=== PATIENT | female | born 1940 | race Caucasian/White ===

== ENCOUNTER 2021-06-21 13:33 | Inpatient (IN) | payer MEDICARE, SELFPAY ==
[2021-06-21] VITALS (25 sets, daily range): BP systolic 95–193; BP diastolic 53–134; PULSE 63–113; RESP 16–18; TEMP 36.5–36.9; O2SAT 90–99; BMI 29.6; BMI 30.2
--- NOTE | 2021-06-21 | IR_ITS ---
APPROVED REPORT Patient Location: Emergent Digital Account Executive: JERONIMO Ibrahim RT (R) PROCEDURES Selective coronary angiogram Drug-eluting stent deployment to the mid dominant right coronary Drug-eluting stent deployment to the acutely occluded mid left anterior descending artery INDICATION Acute non-ST elevation myocardial infarction, Coronary disease Informed consent was obtained prior to the procedure. COMPLICATIONS None Estimated Blood Loss: Less than 10 mls TECHNIQUE One percent lidocaine used to anesthetize the right anterior aspect of the wrist. The right radial artery was accessed via the Seldinger technique. A 6 Prydeinig sheath was placed in the right radial artery. 2.5 mg of verapamil, 800 mcg of nitroglycerin, 1mg Lidocaine and 5000 U Heparin were given through the arterial sheath. The tag catheter was also used to perform selective coronary angiogram. At the end of the diagnostic angiogram therapeutic heparin was administered giving a therapeutic ACT. The guide catheter was placed in the right coronary artery where a Choice PT extra-support wire was placed distally. A 3 mm x 26 mm resolute Center stent was deployed at 24 rafy reducing the critical stenosis to 0%. SAGAR-3 flow was present before and after the procedure. At the end of the procedure the apparatus was removed and the same guide catheter was placed in the left anterior descending artery where a Choice PT extra-support wire was used to push through the fresh occlusion of the mid LAD. 2 mm balloon was used to predilate the stenosis and a 2.75 x 18 mm resolute Case stent was deployed at 20 rafy reducing the 100% occlusion to 0%. SAGAR 0 flow was present from the mid LAD down and SAGAR-3 flow was present after the procedure. At the end of the procedure the apparatus was removed the sheath was removed and hemostasis was achieved using TR banding patient was transferred to the postop holding area in stable condition ANGIOGRAPHIC RESULTS The left main artery Normal The left anterior descending artery Has proximal 10 to 20% stenosis and then occluded in mid segment after the first and second septal planer setter. Following revascularization the entire LAD was widely patent with inline flow into the apex. 3 medium sized diagonal arteries are present first diagonal artery has an ostial 40 to 50% stenosis while the second diagonal artery has an ostial 70% stenosis and a third smaller diagonal artery has ostial 40% stenosis The circumflex artery Gives rise to a moderate sized ramus intermedius which is patent and has an ostial 60% stenosis while the large nondominant circumflex artery has mid vessel 40 to 50% stenosis along a tortuous bend The right coronary artery Is a large dominant vessel and has proximal to mid vessel eccentric 90% stenosis followed by distal diffuse 30% stenosis The FONG ventriculogram reveals Not performed The left ventricular end-diastolic pressure Not measured IMPRESSION Critical two-vessel coronary artery disease as described above Successful stenting of an acutely thrombosed mid LAD 100% occlusion reduced to 0% with 1 drug-eluting stent Successful stenting of a severe to critically diseased proximal to mid dominant right coronary artery 90% stenosis reduced to 0% with 1 drug-eluting stent PLAN 1. Dual antiplatelet therapy 2. Echocardiogram in the morning to determine if patient is a candidate for LifeVest 3. OLAF inhibitor's and beta-blockers 4. LDL less than 55 5. Avoidance of tobacco products 6. Risk factor modification 7. Cardiac rehabilitation Electronically signed by : Julio Lewis MD 06/21/2021 17:50:13
--- NOTE | 2021-06-21 13:29 | ECG_ITS ---
APPROVED REPORT Exam: Resting ECG HR:105 bpm ECG Measurements Heart Rate 105 AXES TX 154 P 81 QRSd 150 QRS 32 QT 341 T 137 QTc 402 Conclusion SINUS TACHYCARDIA LEFT BUNDLE BRANCH BLOCK [120+ ms QRS DURATION, 80+ ms Q/S IN V1/V2, 85+ ms R IN I/aVL/V5/V6] ABNORMAL ECG UNCONFIRMED REPORT Electronically signed by : Farhad Mercado MD 06/21/2021 18:40:35
--- NOTE | 2021-06-21 13:48 | HMH.EDGENADL ---
ED Disposition Clinical Impression: Non-STEMI (non-ST elevated myocardial infarction) Disposition: Admitted As Inpatient Condition on Discharge: Fair Referrals: Provider,Referral, [Primary Care Provider] - - Critical Care Critical Care Time: No Attestation: On , the high probability of a clinically significant, sudden or life threatening deterioration of the following system(s) required my full and direct attention, intervention and personal management. The time I documented below is in addition to time spent performing reported procedures but includes the following listed in this critical care notation. Medical Decision Making - [place] Inquiry Pt receiving controlled substance: No Vital Signs: 06/21/21 13:37 06/21/21 14:30 06/21/21 15:01 Temperature 98.5 F Temperature Source Oral Pulse Rate 108 H 113 H Pulse Rate [Left Radial] 87 Respiratory Rate 16 Blood Pressure 162/76 H 163/72 H Blood Pressure [Right Arm] 154/96 H Blood Pressure Mean [Right Arm] 115 02 Sat by Pulse Oximetry 98 95 96 Oxygen Delivery Method Room Air - Lab Data Lab Results 06/21/21 13:32: WBC 16.7 H, RBC 5.55 H, Hgb 16.0, Hct 49.3 H, MCV 88.8, MCH 28.8, MCHC 32.4, RDW 13.8, Plt Count 412, MPV 9.0, Neut % (Auto) 85.5 H, Lymph % (Auto) 7.4 L, [place] % (Auto) 5.6, Eos % (Auto) 1.0, Baso % (Auto) 0.6, Neut # (Auto) 14.3 H, Lymph # (Auto) 1.2, [place] # (Auto) 0.9, Eos # (Auto) 0.2, Baso # (Auto) 0.1, Total Counted 100, Neutrophils % (Manual) 84 H, Lymphocytes % (Manual) 11, Monocytes % (Manual) 5, Platelet Estimate Normal, RBC Morphology Normal 06/21/21 13:32: Sodium 130 L, Potassium 3.8, Chloride 98, Carbon Dioxide 26, Anion Gap 9.8, BUN 7, Creatinine 0.60, Estimated Creat Clear 53, Estimated GFR 96, Est GFR ( Amer) 117, Glucose 115 H, Calcium 9.4, Troponin I 5.94 H Result diagrams: 06/21/21 13:32 06/21/21 13:32 Orders (Tests/Meds): ED MEDICATIONS Generic Name Dose Route Start Last Admin Trade Name Freq PRN Reason Stop Dose Admin Fentanyl Citrate 25 mcg 06/21/21 15:12 Fentanyl 100mcg/2ml Vial IV 06/22/21 15:12 Q3MINP PRN Moderate to Severe Pain Flumazenil 0.2 mg 06/21/21 15:12 Flumazenil 0.1mg/Ml 5ml Vial IV 06/21/21 23:00 NEEDED PRN Sedation Midazolam HCl 1 mg 06/21/21 15:12 Midazolam 2mg/2ml Vial IV 06/22/21 15:12 Q3MINP PRN Sedation Midazolam HCl 1 mg 06/21/21 15:12 Midazolam Hcl 1mg/1ml 5ml Vial IV 06/22/21 15:12 Q3MINP PRN Sedation Naloxone HCl 0.4 mg 06/21/21 15:12 Naloxone 0.4mg/Ml Vial IV 06/22/21 15:12 Q5MINP PRN Decreased Respirations Sodium Chloride 8 ml 06/21/21 15:00 Sodium Chloride 0.9% 10ml Vial IV 07/21/21 14:59 NEEDED PRN dilute pepcid Discontinued Medications Generic Name Dose Route Start Last Admin Trade Name Freq PRN Reason Stop Dose Admin Aspirin 324 mg 06/21/21 14:23 Aspirin 81mg Chewable Tablet PO 06/21/21 14:24 ONCE ONE Belladonna Alkaloids 60 ml 06/21/21 13:48 Gi Cocktail 60ml Udc PO 06/21/21 13:49 ONCE ONE Diphenhydramine HCl 50 mg 06/21/21 15:00 Diphenhydramine 50mg/Ml Vial IV 06/21/21 15:01 ONCE ONE Famotidine 20 mg 06/21/21 15:00 Famotidine 20mg/2ml Vial IV 06/21/21 15:01 ONCE ONE Methylprednisolone Sodium Succinate 250 mg 06/21/21 15:00 Methylprednisolone Sod Succ 125mg Vial IV 06/21/21 15:01 ONCE ONE ORDERS Category Date Time Status Cardiology Consult [Consult to Cardiology] [CONS] Cons 06/21/21 15:05 Active Routine Chest XR 2 view (NOT portable) [XR chest 2V] Stat Exams 06/21/21 13:49 Taken BNP [Brain Natriuretic Peptide] Stat Lab 06/21/21 13:32 Received Troponin I Q3H Lab 06/21/21 17:00 Ordered Troponin I Q3H Lab 06/21/21 20:00 Ordered - ECG Data Tracing #1 EKG interpreted by Molina Padilla MD: Rhythm: sinus tachycardia Rate: 105 [place]: normal Ectopy: none Cond
--- NOTE | 2021-06-21 13:49 | XR_ITS ---
FINAL REPORT CLINICAL HISTORY: burning in chest, sob FINDINGS: Two views of the chest were obtained. The heart size and pulmonary vascularity are within normal limits. The mediastinum is normal. The lungs are hyperinflated consistent with COPD. There are bilateral pulmonary opacities. There is no pneumothorax. Postoperative changes are seen in the right shoulder. IMPRESSION: Bilateral pulmonary opacities, pneumonia or edema. Reviewed, Interpreted and Dictated by Kwame Lebron III, MD Transcribed by Jagdish Clark Authenticated by Kwame Lebron III, MD on 06/21/2021 04:27:27 PM [facility]
[2021-06-21 13:57] LABS: Chloride 98 mmol/L (98-107)
[2021-06-21 13:58] LABS: Potassium 3.8 mmoL/L (3.5-5.1); Sodium 130 mmol/L (136-145)
[2021-06-21 13:59] LABS: Basophils # 0.1 K/mm3 (0-0.2); Basophils % 0.6 % (0.1-2.0); Eosinophils # 0.2 K/mm3 (0.0-0.4); Hematocrit 49.3 % (37.0-47.0); Lymphocytes # 1.2 K/mm3 (0.7-4.5); Lymphocytes % 7.4 % (10-50); Mean Corpuscular HGB Conc 32.4 g/dL (31.8-35.4); Mean Corpuscular Hemoglobin 28.8 pg (27.0-31.2); Mean Corpuscular Volume 88.8 fl (81-99); Monocytes # 0.9 K/mm3 (0.1-1.0); Monocytes % 5.6 % (1.7-9.3); Neutrophils # 14.3 K/mm3 (1.8-7.8); Neutrophils % 85.5 % (37.0-80.0); Platelet Count 412 K/mm3 (142-424); Red Blood Count 5.55 M/mm3 (4.20-5.40); Red Cell Distribution Width 13.8 % (11.5-17.5); White Blood Count 16.7 K/mm3 (4.8-10.8)
[2021-06-21 14:00] LABS: Blood Urea Nitrogen 7 mg/dl (7-17); Creatinine Clearance Estimated 53 mL/min (50-200); Estimated Glomerular Filt Rate 96 ml/min (>60); GFR (African American) 117 ML/MIN (>60)
[2021-06-21 14:01] LABS: Anion Gap 9.8 mEq/L (5-15); Calcium 9.4 mg/dl (8.4-10.2); Carbon Dioxide 26 mmol/L (22.0-30.0); Glucose 115 mg/dl (74-100)
[2021-06-21 14:03] LABS: MANUAL DIFFERENTIAL MANUAL DIFFERENTIAL (MANUAL DIFF)
[2021-06-21 14:14] LABS: Troponin I 5.94 ng/ml (0.00-0.034)
[2021-06-21 14:17] LABS: Lymphocytes % 11 % (10-50); Monocytes % 5 % (2-9); Neutrophils % 84 % (42-76); Platelet Estimate Normal; RBC Morphology Normal; Total Cells Counted 100
--- NOTE | 2021-06-21 14:41 | PC.NURSE ---
Horacio Jackson at bedside
--- NOTE | 2021-06-21 15:01 | PC.NURSE ---
pt up to restroom, pt felt short of breath while walking.
--- NOTE | 2021-06-21 15:08 | HMH.CNCARD ---
History of Present Illness Consult date: 06/21/21 Consult reason: chest pain Chief complaint: NSTEMI, LBBB on EKG Additional Medical History:: 1. Hypertension A. History of echocardiogram approximately 2019 with normal left ventricular ejection fraction. B. Patient states she takes Maxide as needed lower extremity edema 2. Chronic left bundle branch block by EKG 3. IV contrast allergy with hypotension 4. Chronic tobacco use since age 21 A. COPD 5. History of EGD and colonoscopy with mucosal irritation noted. History of present illness: Patient states that he has been having episodes of chest pain since around Olaf. She gets it every day, usually more than once a day. States that it hurts worse about 10 minutes after she eats. Associated with diaphoresis. States that she is chronically short of breath, no change with pain. Currently is pain-free. She states her most recent episode of pain started the day before yesterday after eating chicken soup and lasted for about 14 hours. She says she has seen her primary care provider and was started on Pepcid and medications for GERD. She has a known left bundle branch block. She saw Dr. Mcdaniels and had an echocardiogram because of her left bundle branch block (2018). She says he wanted to do a heart cath but he would only go through the groin and she says she cannot breathe while lying down and therefore she did not have a heart cath. She is a smoker. She has hypertension and hyperlipidemia. No known family history of heart disease. She does not have diabetes. Current pain level is 0/10. The above per Dr. Padilla Work-up in the ER today revealed normal creatinine with a troponin of 5.9. She has left bundle branch block on EKG. Currently patient denies any substernal chest pain but did recently have some left upper extremity discomfort. Patient does relate a contrast allergy. Discussed with Dr. Lewis who recommends cardiac catheterization today with pretreatment including Solu-Medrol. [facility] History Medical History: Reports:: Gastroesophageal Reflux Disease(GERD), Hyperlipidemia, Hypertension *Have you ever received a pneumonia vaccine?: Yes *Have you received a flu vaccine this season?: Yes - *Social History Smoking Status: Current every day smoker Alcohol Intake: never *Occupational Status:: retired *Travel in the last 8 weeks: Inside the [facility] Family Hx:: Non-contributory Meds Allergies Allergy/AdvReac Type Severity Reaction Status Date / Time levofloxacin [From Levaquin] Allergy Mild Verified 06/21/21 13:48 Sulfa (Sulfonamide Allergy Mild Verified 06/21/21 13:48 Antibiotics) Exam Vital signs and Labs for Last 24 Hours: Temp Pulse Resp BP Pulse Ox 98.5 F 113 H 16 163/72 H 96 06/21/21 13:37 06/21/21 15:01 06/21/21 13:37 06/21/21 15:01 06/21/21 15:01 Laboratory Results - last 24 hr 06/21/21 13:32: WBC 16.7 H, RBC 5.55 H, Hgb 16.0, Hct 49.3 H, MCV 88.8, MCH 28.8, MCHC 32.4, RDW 13.8, Plt Count 412, MPV 9.0, Neut % (Auto) 85.5 H, Lymph % (Auto) 7.4 L, [place] % (Auto) 5.6, Eos % (Auto) 1.0, Baso % (Auto) 0.6, Neut # (Auto) 14.3 H, Lymph # (Auto) 1.2, [place] # (Auto) 0.9, Eos # (Auto) 0.2, Baso # (Auto) 0.1, Total Counted 100, Neutrophils % (Manual) 84 H, Lymphocytes % (Manual) 11, Monocytes % (Manual) 5, Platelet Estimate Normal, RBC Morphology Normal 06/21/21 13:32: Sodium 130 L, Potassium 3.8, Chloride 98, Carbon Dioxide 26, Anion Gap 9.8, BUN 7, Creatinine 0.60, Estimated Creat Clear 53, Estimated GFR 96, Est GFR ( Amer) 117, Glucose 115 H, Calcium 9.4, Troponin I 5.94 H I & O for Last 24 hours: Intake & Output 06/19/21 06/20/21 06/21/21 06/22/21 11:59 11:59 11:59 11:59 Weight 162 lb - Constitutional no acute distress - *Routine HEENT Exam Head: Present: normocephalic Eye: Present: EOMI, PERRL ENT: Present: mucous membranes moist - *Routine Neck Exam Present: supple. Absent: lymphadenopathy - *Routine Re
--- NOTE | 2021-06-21 15:12 | PC.NURSE ---
Dr Padilla speaking with Dr Nielsen
--- NOTE | 2021-06-21 15:14 | PC.NURSE ---
Spoke with Danay in Case Management to advise of admission
[2021-06-21 15:33] LABS: NT Pro Brain Natriuretic Pep. 6040 pg/mL (0-450)
[2021-06-21 16:15] LABS: Coronavirus 19, PCR Not Detected (NotDetected); Influenza A, PCR Not Detected (NotDetected); Influenza B, PCR Not Detected (NotDetected)
[2021-06-21 18:09] LABS: CATHL Activated Clotting Time 302 SEC (74-125)
[2021-06-22] VITALS (9 sets, daily range): BP systolic 101–138; BP diastolic 44–74; PULSE 62–86; RESP 16–22; TEMP 36.5–37.1; O2SAT 94–98
--- NOTE | 2021-06-22 06:03 | PC.NURSE ---
Pt has rested on and off t/o shift. Pt is on room air with O2 sat >90%. Pt has voiced no c/o of pain or SOA this shift. Pt has used BSC to void with 800ML output thus far in shift. Right radial cath site is C/D/I. Pt is eager to go home. Call light within reach.
--- NOTE | 2021-06-22 08:00 | CA_ITS ---
APPROVED REPORT EXAM: Comprehensive 2D, Doppler, and color-flow Echocardiogram Legal Administrator: MARY Bell, RVS Ht: 5 ft 4 in Wt: 176lbs BSA: 1.85 BP: 163/72 mmHg Indications: Abnormal ECG-LBBB, Congestive Heart Failure, COPD, Status/Post CT, Obesity, CAD, Hyperlipidemia, Hypertension/HDD Echo Enhancing Agent Indication: Endocardial border delineation Agent(s) / Amount(s) Used: Definity 2 cc 2D Dimensions IVSd 1.14 cm LVEF (Visual) 23.70 % PWd 0.90 cm LA Volume 46.40 mL LVDd 4.52 cm LA Volume Index 25.380190 mL/m2 (M/F) 16-34 LVDs 4.03 cm M-Mode Dimensions RVDd 1.65 cm (0.9-2.6) LA Diam 3.16 cm (1.9-4.0) LVDd 4.11 cm (3.5-5.7) Ao Diam 2.82 cm (2.0-3.7) LVDs 3.10 cm (3.5-5.7) IVSd 1.36 cm (0.6-1.1) PWd 1.10 cm (0.6-1.1) EF (Teich) 49.30% EPSs 0.72 cm FS 24.60% EDV (Teich) 74.70 mL TAPSE 1.30 (<1.7) ESV (Teich) 37.90 mL LV Diastology E Decel Time 327.00 (160-240 msec) E/A Ratio 0.77 MED E' 6.70 (< 7 cm/sec) MED A' 5.20 cm/s E'/MED E' Ratio 12.28 (>14) LAT E' 5.10 (<10 cm/sec) LAT A' 15.20 cm/s E/LAT E' Ratio 16.14 (>14) Aortic Valve LVOT Max 110.00 (70-110 cm/s) LVOT VTI 20.56 cm AoV Peak Giorgio. 174.00 (50-130 cm/s) AO Peak GR. 12.20 mmHg AO Mean GR. 5.00 (<5 mmHg) AO VTI 34.58 (18-25 cm) Mitral Valve MV A Velocity 108.00 (40-130 cm/s) E/A Ratio 0.77 MV Decel. Time 327.00 (160-240 ms) MV Mean Gr. 4.00 (<2mmHg) Pulmonary Valve PV Peak Velocity 84.00 (50-150 cm/s) Tricuspid Valve TR P. Velocity 234.00 cm/s RAP Estimate 10.00 mmHg RVSP 31.90 mmHg Left Ventricle Technically difficult study because of the patient factors and poor acoustic windows, Definity Contrast Was Utilized to Delineate the Endocardial Surfaces. Left atrium is mildly enlarged, left ventricle is normal size, mild concentric left ventricular hypertrophy, visually estimated ejection fraction 40%, there is marked hypokinesis involving mid to distal septum and anterior apical wall. There is no left ventricular thrombus seen. Grade 1 diastolic dysfunction seen with tissue Doppler evidence of raise left atrial pressure. Right Ventricle Right atrium and right ventricle are normal size and contractility. Aortic Valve Aortic valve is minimally thickened and fibrosed there is no aortic stenosis or aortic insufficiency. Mitral Valve Mitral valve has mitral calcification there is no mitral stenosis, there is mild mitral regurgitation. Tricuspid Valve Tricuspid valve grossly normal, there is mild tricuspid regurgitation, tricuspid regurgitation jet velocity is inadequate for calculation of the right ventricular systolic pressure. Pulmonic Valve Pulmonic valve is poorly visualized. Great Vessels Aortic root is normal size. Inferior vena cava is poorly visualized. Pericardium No significant pericardial effusion noted. Conclusion 1. Technically difficult study because of the patient factors and poor acoustic windows. 2. Mildly enlarged left atrium, normal left ventricular size, mild concentric left ventricular hypertrophy, visually estimated ejection fraction approximately 40% with segmental wall motion abnormality described above, grade 1 diastolic dysfunction seen without tissue Doppler evidence of raise left atrial pressure, there is no left ventricular thrombus seen. Definity contrast was utilized to delineate the endocardial surfaces. 3. Mild mitral and tricuspid regurg
--- NOTE | 2021-06-22 09:16 | HMH.HP ---
*Admission Date: 06/21/21 <Usha Oates - 06/22/21 09:20> *Chief complaint: chest pain <Usha Oates - 06/22/21 09:20> *History of present illness: Patient states that he has been having episodes of chest pain since around Olaf. She gets it every day, usually more than once a day. States that it hurts worse about 10 minutes after she eats. Associated with diaphoresis. States that she is chronically short of breath, no change with pain. Currently is pain-free. She states her most recent episode of pain started the day before yesterday after eating chicken soup and lasted for about 14 hours. She says she has seen her primary care provider and was started on Pepcid and medications for GERD. She has a known left bundle branch block. She saw Dr. Mcdaniels and had an echocardiogram because of her left bundle branch block (2019). She says he wanted to do a heart cath but he would only go through the groin and she says she cannot breathe while lying down and therefore she did not have a heart cath. She is a smoker. She has hypertension and hyperlipidemia. No known family history of heart disease. She does not have diabetes. Current pain level is 0/10. Work-up in the ER today revealed normal creatinine with a troponin of 5.9. She has left bundle branch block on EKG. Currently patient denies any substernal chest pain but did recently have some left upper extremity discomfort. Patient does relate a contrast allergy. Discussed with Dr. Lewis who recommends cardiac catheterization today with pretreatment including Solu-Medrol. (above as per Horacio Jackson) <Usha Oates - 06/22/21 09:20> [facility] History I have reviewed the patient's past medical history: Yes <Usha Oates 06/22/21 09:20> Medical History: Reports:: Arrhythmia, Gastroesophageal Reflux Disease(GERD), Hyperlipidemia, Hypertension Denies:: Cancer, Diabetes Mellitus Type 1, Diabetes Mellitus Type 2, MRSA, Seizures <Usha Oates 06/22/21 09:20> *Have you ever received a pneumonia vaccine?: No <Usha Oates 06/22/21 09:20> *Have you received a flu vaccine this season?: No <Usha Oates 06/22/21 09:20> Other Medical History: Reports: Arthritis <Usha Oates 06/22/21 09:20> Other Surgeries: Yes: Appendectomy, Cholecystectomy, Hernia Repair, Hysterectomy-Total <Usha Oates 06/22/21 09:20> Amputation: No <Mihir Oatesa 06/22/21 09:20> Fractures: No <Mihir Oatesa 06/22/21 09:20> - *Social History Smoking Status: Current every day smoker <Mihir Oatesa 06/22/21 09:20> Tobacco Type: cigarettes <Mihir Oatesa 06/22/21 09:20> # Packs/Day (cigarettes): 1 <Usha Oates 06/22/21 09:20> Alcohol Intake: never <Usha Oates 06/22/21 09:20> *Occupational Status:: retired <Mihir Oatesa 06/22/21 09:20> Housing: house <LashonUsha 06/22/21 09:20> *Travel in the last 8 weeks: None <Mihir Oatesa 06/22/21 09:20> Family Hx:: No significant family history <Mihir Oatesa 06/22/21 09:20> Review of Systems - Constitutional Reports weakness, Denies chills, Denies fever(s) <Mihir Oatesa 06/22/21 09:20> - Eyes Denies blurry vision, Denies double vision <Mihir Oatesa 06/22/21 09:20> - ENT Denies nasal congestion, Denies sore throat <LashonUsha 06/22/21 09:20> - *Cardiovascular Reports chest pain, Reports shortness of breath <Mihir Oatesa 06/22/21 09:20> - *Respiratory Reports chest congestion, Reports cough, Reports shortness of breath <LashonUsha 06/22/21 09:20> - *Gastrointestinal Reports abdominal pain, Reports heartburn, Denies loose stools, Denies nausea, Denies vomiting <Usha Oates 06/22/21 09:20> - *Genitourinary Denies difficulty urinating, Denies painful urination <Usha Oates 06/22/21 09:20> - *Musculoskeletal Denies joint pain, Denies body aches <Usha Oates - 06/22/21 09:20> - *Neurologic Reports confusion, Reports headache(s), Reports weakness <Usha Oates
[2021-06-22 09:36] LABS: Chloride 102 mmol/L (98-107); Sodium 133 mmol/L (136-145)
[2021-06-22 09:37] LABS: Potassium 3.8 mmoL/L (3.5-5.1)
[2021-06-22 09:39] LABS: Blood Urea Nitrogen 13 mg/dl (7-17); Creatinine Clearance Estimated 57 mL/min (50-200); Estimated Glomerular Filt Rate 69 ml/min (>60); GFR (African American) 84 ML/MIN (>60)
[2021-06-22 09:40] LABS: Anion Gap 12.8 mEq/L (5-15); Calcium 9.1 mg/dl (8.4-10.2); Carbon Dioxide 22 mmol/L (22.0-30.0); Glucose 257 mg/dl (74-100)
[2021-06-22 09:45] LABS: Basophils % 0.1 % (0.1-2.0); Eosinophils % 0.1 % (0.1-12.0); Hematocrit 46.4 % (37.0-47.0); Hemoglobin 14.9 g/dL (12.2-16.2); Lymphocytes # 0.4 K/mm3 (0.7-4.5); Lymphocytes % 2.4 % (10-50); Mean Corpuscular HGB Conc 32.1 g/dL (31.8-35.4); Mean Corpuscular Hemoglobin 28.8 pg (27.0-31.2); Mean Corpuscular Volume 89.8 fl (81-99); Mean Platelet Volume 8.5 fl (7.4-10.4); Monocytes # 0.4 K/mm3 (0.1-1.0); Monocytes % 2.1 % (1.7-9.3); Neutrophils # 15.7 K/mm3 (1.8-7.8); Neutrophils % 95.4 % (37.0-80.0); Platelet Count 408 K/mm3 (142-424); Red Blood Count 5.17 M/mm3 (4.20-5.40); White Blood Count 16.5 K/mm3 (4.8-10.8)
[2021-06-22 09:58] LABS: MANUAL DIFFERENTIAL MANUAL DIFFERENTIAL (MANUAL DIFF)
--- NOTE | 2021-06-22 10:28 | HMH.PNCARD ---
Subjective Date: 06/22/21 Time: 10:00 Principal diagnosis: non-stemi Interval history: This is a 81-year-old female who has been having chest pain since before . The patient presented here to the hospital with complaints of chest pain. She was found to have an elevated troponin at 5.9. She also had a left bundle branch block on EKG. The patient underwent left cardiac catheterization yesterday and had stenting to her LAD with 1 drug-eluting stent and stenting to her right coronary artery with 1 drug-eluting stent. The patient tolerated the procedure well and will be on Brilinta and aspirin for dual antiplatelet therapy. This morning she denies any chest pain or pressure. She denies any shortness of breath or edema. She denies any fever, chills, nausea, vomiting, diarrhea, PND or orthopnea. LHC shows: The left main artery Normal The left anterior descending artery Has proximal 10 to 20% stenosis and then occluded in mid segment after the first and second septal studio director. Following revascularization the entire LAD was widely patent with inline flow into the apex. 3 medium sized diagonal arteries are present first diagonal artery has an ostial 40 to 50% stenosis while the second diagonal artery has an ostial 70% stenosis and a third smaller diagonal artery has ostial 40% stenosis The circumflex artery Gives rise to a moderate sized ramus intermedius which is patent and has an ostial 60% stenosis while the large nondominant circumflex artery has mid vessel 40 to 50% stenosis along a tortuous bend The right coronary artery Is a large dominant vessel and has proximal to mid vessel eccentric 90% stenosis followed by distal diffuse 30% stenosis The FONG ventriculogram reveals Not performed The left ventricular end-diastolic pressure Not measured IMPRESSION Critical two-vessel coronary artery disease as described above Successful stenting of an acutely thrombosed mid LAD 100% occlusion reduced to 0% with 1 drug-eluting stent Successful stenting of a severe to critically diseased proximal to mid dominant right coronary artery 90% stenosis reduced to 0% with 1 drug-eluting stent PLAN 1. Dual antiplatelet therapy 2. Echocardiogram in the morning to determine if patient is a candidate for LifeVest 3. OLAF inhibitor's and beta-blockers 4. LDL less than 55 5. Avoidance of tobacco products 6. Risk factor modification Exam Vital signs and Labs for Last 24 Hours: Temp Pulse Resp BP Pulse Ox 97.7 F 77 22 120/44 L 98 06/22/21 08:00 06/22/21 08:00 06/22/21 08:00 06/22/21 08:00 06/22/21 08:00 Laboratory Results - last 24 hr 06/21/21 13:32: WBC 16.7 H, RBC 5.55 H, Hgb 16.0, Hct 49.3 H, MCV 88.8, MCH 28.8, MCHC 32.4, RDW 13.8, Plt Count 412, MPV 9.0, Neut % (Auto) 85.5 H, Lymph % (Auto) 7.4 L, Elbert % (Auto) 5.6, Eos % (Auto) 1.0, Baso % (Auto) 0.6, Neut # (Auto) 14.3 H, Lymph # (Auto) 1.2, Elbert # (Auto) 0.9, Eos # (Auto) 0.2, Baso # (Auto) 0.1, Total Counted 100, Neutrophils % (Manual) 84 H, Lymphocytes % (Manual) 11, Monocytes % (Manual) 5, Platelet Estimate Normal, RBC Morphology Normal 06/21/21 13:32: Sodium 130 L, Potassium 3.8, Chloride 98, Carbon Dioxide 26, Anion Gap 9.8, BUN 7, Creatinine 0.60, Estimated Creat Clear 53, Estimated GFR 96, Est GFR ( Amer) 117, Glucose 115 H, Calcium 9.4, Troponin I 5.94 H 06/21/21 13:32: NT-Pro-B Natriuret Pep 6040 H 06/21/21 15:07: SARS-CoV-2 (PCR) Not detected, Influenza A Untype (PCR) Not detected, Influenza Type B (PCR) Not detected 06/21/21 18:27: Activated Clotting Time 302 H* 06/22/21 09:03: WBC 16.5 H, RBC 5.17, Hgb 14.9, Hct 46.4, MCV 89.8, MCH 28.8, MCHC 32.1, RDW 14.0, Plt Count 408, MPV 8.5, Neut % (Auto) 95.4 H, Lymph % (Auto) 2.4 L, Elbert % (Auto) 2.1, Eos % (Auto) 0.1, Baso % (Auto) 0.1, Neut # (Auto) 15.7 H, Lymph # (Auto) 0.4 L, Elbert # (Auto) 0.4, Eos # (Auto) 0.0, Baso # (Auto) 0.0 06/22/21 09:03: Sodium 133 L, Potassium 3.8, Chloride 102, Carbon Dioxide 22, Anion
--- NOTE | 2021-06-22 11:20 | HMH.PHAVTE ---
[facility] Pharmacy VTE Monitoring - Patient Demographics Admission date: 06/21/21 Report Date: 06/22/21 Time: 11:20 Allergies/Adverse Reactions: Patient Allergies Iodinated Contrast Media Allergy (Mild, Verified 06/21/21 15:36) levofloxacin [From Levaquin] Allergy (Mild, Verified 06/21/21 13:48) Sulfa (Sulfonamide Antibiotics) Allergy (Mild, Verified 06/21/21 13:48) Height: 1.63 m Weight: 79.832 kg Patient Problems: Current Active Problems Non-STEMI (non-ST elevated myocardial infarction) (Acute) Left bundle branch block (LBBB) on electrocardiogram (Acute) Hypertension (Acute) Hyperlipidemia (Acute) COPD (chronic obstructive pulmonary disease) (Acute) Tobacco use disorder, continuous (Acute) Stented coronary artery (Acute) Coronary artery disease (Chronic) - VTE Risk Labs: VTE Related Lab Results Hgb 14.9 g/dL (12.2-16.2) 06/22/21 09:03 Hct 46.4 % (37.0-47.0) 06/22/21 09:03 Plt Count 408 K/mm3 (142-424) 06/22/21 09:03 BUN 13 mg/dl (7-17) D 06/22/21 09:03 Creatinine 0.80 mg/dl (0.52-1.04) D 06/22/21 09:03 Estimated Creat Clear 57 mL/min (50-200) 06/22/21 09:03 - Prophylaxis VTE Prophylaxis Ordered?: Yes Types of VTE Prophylaxis: TEDS Knee High Location of Applied Device: Bilateral Lower Extremeties
[2021-06-22 14:26] LABS: Lymphocytes % 4 % (10-50); Monocytes % 3 % (2-9); Neutrophils % 93 % (42-76); Total Cells Counted 100
[2021-06-22 14:27] LABS: Platelet Estimate Slight Increase; RBC Morphology Normal
--- NOTE | 2021-06-22 16:16 | HMH.PHAINT ---
MEDICATION RECONCILIATION COMPLETED ON PATIENT BY CALLING [facility] IN [place] AND VIA PATIENT INTERVIEW. -LOLIS FARMERD
--- NOTE | 2021-06-22 19:00 | ECG_ITS ---
APPROVED REPORT Exam: Resting ECG HR:81 bpm ECG Measurements Heart Rate 81 AXES TN 162 P 75 QRSd 154 QRS 20 QT 399 T 157 QTc 436 Conclusion SINUS RHYTHM WITH OCCASIONAL SUPRAVENTRICULAR PREMATURE COMPLEXES LEFT BUNDLE BRANCH BLOCK [120+ ms QRS DURATION, 80+ ms Q/S IN V1/V2, 85+ ms R IN I/aVL/V5/V6] ABNORMAL ECG UNCONFIRMED REPORT Electronically signed by : Farhad Mercado MD 06/23/2021 07:35:50
--- NOTE | 2021-06-23 03:30 | PC.NURSE ---
Patient has had no acute events thus far in this RN's shift. She has voiced no complaints to this RN and has slept well. Will continue to monitor.
[2021-06-23 03:53] VITALS: BP 111/46; PULSE 73; RESP 18; TEMP 36.8; O2SAT 93
[2021-06-23 03:58] VITALS: BMI 29.8
[2021-06-23 06:21] VITALS: PULSE 85; PULSE 93
[2021-06-23 06:32] LABS: Basophils % 0.1 % (0.1-2.0); Eosinophils # 0.1 K/mm3 (0.0-0.4); Eosinophils % 0.7 % (0.1-12.0); Hematocrit 46.9 % (37.0-47.0); Hemoglobin 14.8 g/dL (12.2-16.2); Lymphocytes # 1.2 K/mm3 (0.7-4.5); Lymphocytes % 7.3 % (10-50); Mean Corpuscular HGB Conc 31.6 g/dL (31.8-35.4); Mean Corpuscular Hemoglobin 28.8 pg (27.0-31.2); Mean Platelet Volume 8.1 fl (7.4-10.4); Monocytes # 0.7 K/mm3 (0.1-1.0); Monocytes % 4.3 % (1.7-9.3); Neutrophils # 14.1 K/mm3 (1.8-7.8); Neutrophils % 87.7 % (37.0-80.0); Platelet Count 410 K/mm3 (142-424); Red Blood Count 5.16 M/mm3 (4.20-5.40); Red Cell Distribution Width 13.9 % (11.5-17.5)
[2021-06-23 06:35] LABS: MANUAL DIFFERENTIAL MANUAL DIFFERENTIAL (MANUAL DIFF)
[2021-06-23 06:41] LABS: Chloride 104 mmol/L (98-107); Potassium 4.3 mmoL/L (3.5-5.1); Sodium 134 mmol/L (136-145)
[2021-06-23 06:43] LABS: Bilirubin,Unconjugated 0.7 mg/dL (0.0-1.1); Blood Urea Nitrogen 29 mg/dl (7-17); Creatinine Clearance Estimated 52 mL/min (50-200); Estimated Glomerular Filt Rate 48 ml/min (>60); GFR (African American) 58 ML/MIN (>60)
[2021-06-23 06:44] LABS: Alanine Aminotransferase 30 U/L (12-78); Albumin Level 3.9 g/dl (3.5-5.0); Alkaline Phosphatase 103 U/L (38-126); Anion Gap 10.3 mEq/L (5-15); Aspartate Amino Transferase 56 U/L (14-36); Bilirubin,Direct 0.1 mg/dl (0.0-0.4); Bilirubin,Indirect 0.7 mg/dL (0.0-0.9); Bilirubin,Total 0.8 mg/dl (0.2-1.3); Calcium 9.2 mg/dl (8.4-10.2); Carbon Dioxide 24 mmol/L (22.0-30.0); Cholesterol 169 mg/dl (140-200); Glucose 113 mg/dl (74-100); Total Protein,Serum 6.9 g/dl (6.3-8.2); Triglycerides 142 mg/dl (30-150); VLDL Cholesterol 28 mg/dL (0-40)
[2021-06-23 06:45] LABS: Chol/HDL Ratio 3.1 (1-3.5); HDL Cholesterol 55 mg/dl (40-60)
[2021-06-23 06:55] LABS: Direct LDL Cholesterol 87.72 mg/dL (100-129)
[2021-06-23 07:09] LABS: Hypochromasia 1+; Lymphocytes % 10 % (10-50); Monocytes % 1 % (2-9); Neutrophils % 85 % (42-76); Platelet Estimate Normal; Total Cells Counted 100
[2021-06-23 08:00] VITALS: BP 91/60; PULSE 76; PULSE 77; RESP 16; TEMP 36.6; O2SAT 98
--- NOTE | 2021-06-23 10:49 | HMH.ACPN2 ---
Internal Medicine - PN: Subj *Date: 06/23/21 *Time: 10:49 Interval history: Patient had a pretty good night last night. She had some wheezing this morning which resolved with Xopenex. She is anxious to go home. Exam Vital signs and Labs for Last 24 Hours: Temp Pulse Resp BP Pulse Ox 97.9 F 77 16 91/60 L 98 06/23/21 08:00 06/23/21 08:00 06/23/21 08:00 06/23/21 08:00 06/23/21 08:00 Laboratory Results - last 24 hr 06/22/21 09:03: Total Counted 100, Neutrophils % (Manual) 93 H, Lymphocytes % (Manual) 4 L, Monocytes % (Manual) 3, Platelet Estimate Slight increase, RBC Morphology Normal 06/23/21 06:17: WBC 16.0 H, RBC 5.16, Hgb 14.8, Hct 46.9, MCV 91.0, MCH 28.8, MCHC 31.6 L, RDW 13.9, Plt Count 410, MPV 8.1, Neut % (Auto) 87.7 H, Lymph % (Auto) 7.3 L, Rains % (Auto) 4.3, Eos % (Auto) 0.7, Baso % (Auto) 0.1, Neut # (Auto) 14.1 H, Lymph # (Auto) 1.2, Rains # (Auto) 0.7, Eos # (Auto) 0.1, Baso # (Auto) 0.0, Total Counted 100, Neutrophils % (Manual) 85 H, Band Neutrophils % 4.0, Lymphocytes % (Manual) 10, Monocytes % (Manual) 1 L, Platelet Estimate Normal, Hypochromasia 1+ 06/23/21 06:17: Sodium 134 L, Potassium 4.3, Chloride 104, Carbon Dioxide 24, Anion Gap 10.3, BUN 29 H D, Creatinine 1.10 H D, Estimated Creat Clear 52, Estimated GFR 48 L, Est GFR ( Amer) 58 L D, Glucose 113 H D, Calcium 9.2, Total Bilirubin 0.8, Direct Bilirubin 0.1, Conjugated Bilirubin 0.0, Indirect Bilirubin 0.7, Unconjugated Bilirubin 0.7, AST 56 H, ALT 30, Alkaline Phosphatase 103, Total Protein 6.9, Albumin 3.9, Triglycerides 142, Cholesterol 169, LDL Cholesterol Direct 87.72 L, VLDL Cholesterol 28, HDL Cholesterol 55, Cholesterol/HDL Ratio 3.1 Vital Signs - 24 hr 06/22/21 11:40 06/22/21 15:18 06/22/21 20:00 Temperature 98.1 F 98.0 F 97.8 F Pulse Rate Pulse Rate [Left Radial] 85 79 84 Respiratory Rate 22 20 17 Blood Pressure [Left Arm] 138/74 114/62 124/62 02 Sat by Pulse Oximetry 96 98 96 06/22/21 21:37 06/22/21 23:36 06/23/21 03:53 Temperature 98 F 98.2 F Pulse Rate 77 Pulse Rate [Left Radial] 79 73 Respiratory Rate 16 18 Blood Pressure [Left Arm] 101/45 L 111/46 L 02 Sat by Pulse Oximetry 96 94 L 93 L 06/23/21 06:21 06/23/21 08:00 Temperature 97.9 F Pulse Rate 93 H 76 Pulse Rate [Left Radial] 77 Respiratory Rate 16 Blood Pressure [Left Arm] 91/60 L 02 Sat by Pulse Oximetry 98 I & O for Last 24 hours: Intake & Output 06/20/21 06/21/21 06/22/21 06/23/21 23:59 23:59 23:59 23:59 Intake Total 960 / 960 240 / 240 Output Total 500 / 500 1500 / 1500 Balance -500 / -500 -540 / -540 240 / 240 Weight 176 lb 175 lb 14.862 oz 175 lb - Constitutional no acute distress - *Routine HEENT Exam Head: Present: normocephalic Eye: Present: EOMI, PERRL ENT: Present: mucous membranes moist - *Routine Neck Exam Present: supple. Absent: lymphadenopathy - *Routine Respiratory Exam Present: rhonchi (few). Absent: wheezes - *Routine Cardiovascular Exam Present: RRR - *Routine Abdominal Exam Present: soft, normoactive bowel sounds. Absent: tenderness - *Routine Extremities Exam Absent: cyanosis, clubbing, edema - *Routine Skin Exam Present: warm. Absent: rash - *Routine Neurological Exam Present: alert, oriented X3 Assessment and Plan (1) Non-STEMI (non-ST elevated myocardial infarction) Status: Acute Category: Medical Code(s): I21.4 - Non-ST elevation (NSTEMI) myocardial infarction (2) Coronary artery disease Status: Chronic Category: Medical Code(s): I25.10 - Atherosclerotic heart disease of [place] coronary artery without angina pectoris (3) Left bundle branch block (LBBB) on electrocardiogram Status: Acute Category: Medical Code(s): I44.7 - Left bundle-branch block, unspecified (4) Hypertension Status: Acute Category: Medical Code(s): I10 - Essential (primary) hypertension (5) Hyperlipidemia Status: Acute Category: Medical Code(s): E78.5 - Hyper
--- NOTE | 2021-06-23 12:11 | HMH.PHACLD ---
Luana Hsu has received discharge medication counseling on the following medications: PATIENT STARTED ON ASPIRIN 81 MG EC DAILY, BRILINTA 90 MG BID, METOPROLOL 12.5 MG BID, AND LISINOPRIL 5 MG BID. PATIENT NOT ABLE TO TOLERATE STATIN.
--- NOTE | 2021-06-25 11:21 | HMH.DCSUM ---
General - General Admission date:: 06/21/21 Discharge date: 06/23/21 HPI HPI: Patient states that he has been having episodes of chest pain since around [place]. She gets it every day, usually more than once a day. States that it hurts worse about 10 minutes after she eats. Associated with diaphoresis. States that she is chronically short of breath, no change with pain. Currently is pain-free. She states her most recent episode of pain started the day before yesterday after eating chicken soup and lasted for about 14 hours. She says she has seen her primary care provider and was started on Pepcid and medications for GERD. She has a known left bundle branch block. She saw Dr. Mcdaniels and had an echocardiogram because of her left bundle branch block (2018). She says he wanted to do a heart cath but he would only go through the groin and she says she cannot breathe while lying down and therefore she did not have a heart cath. She is a smoker. She has hypertension and hyperlipidemia. No known family history of heart disease. She does not have diabetes. Current pain level is 0/10. Work-up in the ER today revealed normal creatinine with a troponin of 5.9. She has left bundle branch block on EKG. Currently patient denies any substernal chest pain but did recently have some left upper extremity discomfort. Patient does relate a contrast allergy. Discussed with Dr. Lewis who recommends cardiac catheterization today with pretreatment including Solu-Medrol. (above as per [facility]) Hospital Course Hospital Course: The patient was taken to the [facility] and had critical two-vessel coronary artery disease. She had successful stenting of an acutely thrombosed mid LAD with 100% occlusion reduced to 0%. She also had stenting to the mid dominant right coronary artery with 90% stenosis reduced to 0%. Cardiology wanted her on dual antiplatelet therapy and ordered an echo for the following day. She felt much better after her heart cath. Her echo showed an EF of 40% with grade 1 diastolic dysfunction. She was started on lisinopril metoprolol for cardiomyopathy. Tobacco cessation was advised. She stated she had no interest in stopping smoking. Cardiology felt the patient could be discharged and will need to follow-up with them in 1 week. She wanted to see her primary director of casework Dr. Mandel in [place]. By 06/23/2021, she was feeling well. She had some wheezing which resolved with Xopenex. She was anxious to be discharged home. She did refuse statin therapy stating she had terrible side effects to 3 separate statins in the past. She preferred to discuss lipid-lowering agents with her primary director of casework. She was discharged and will follow up with her PCP as well as cardiology. Objective Vital signs: Temp Pulse Resp BP Pulse Ox 97.9 F 77 16 91/60 L 98 06/23/21 08:00 06/23/21 08:00 06/23/21 08:00 06/23/21 08:00 06/23/21 08:00 Narrative: - Constitutional no acute distress - *Routine HEENT Exam Head: Present: normocephalic Eye: Present: EOMI, PERRL ENT: Present: mucous membranes moist - *Routine Neck Exam Present: supple. Absent: lymphadenopathy - *Routine Respiratory Exam Present: rhonchi (few). Absent: wheezes - *Routine Cardiovascular Exam Present: RRR - *Routine Abdominal Exam Present: soft, normoactive bowel sounds. Absent: tenderness - *Routine Extremities Exam Absent: cyanosis, clubbing, edema - *Routine Skin Exam Present: warm. Absent: rash - *Routine Neurological Exam Present: alert, oriented X3 DS: Diagnosis - Discharge Diagnosis (1) Non-STEMI (non-ST elevated myocardial infarction) Status: Acute (2) Coronary artery disease Status: Chronic (3) Left bundle branch block (LBBB) on electrocardiogram Status: Acute (4) Hypertension Status: Acute (5) Hyperlipidemia Status: Acute (6) COPD (chronic obstructive pulmonary disease) Status: Acute
== END 2021-06-23 11:58 | disposition home or self-care (01) | DRG 247 ==
LOC: ER 15:05 → 2ND 15:32 → ICU 18:25
PROVIDERS: Internal Medicine; Nurse Practitioner Family; Admitting Provider Family Medicine; Emergency Provider Emergency Medicine; Visit Provider Family Medicine
PROC: 027135Z Dilation of Coronary Artery, Two Arteries with Two Drug-eluting Intraluminal Devices, Percutaneous Approach (ICD-10-PCS; principal; 2021-06-21 15:00)
DX: I21.4 Non-ST elevation (NSTEMI) myocardial infarction (principal); I42.9 Cardiomyopathy, unspecified; K21.9 Gastro-esophageal reflux disease without esophagitis; I10 Essential (primary) hypertension; E78.5 Hyperlipidemia, unspecified; I25.82 Chronic total occlusion of coronary artery; I25.10 Atherosclerotic heart disease of native coronary artery without angina pectoris; Z71.6 Tobacco abuse counseling; F17.200 Nicotine dependence, unspecified, uncomplicated
CPT/HCPCS: 36415; 71046; 80048; 80061; 80076; 83880; 84484; 85007; 85025; 85347; 92928; 92943; 93005; 93306; 93458; 94640; 94760; 94761; 96374; 96375; 99152; 99284; C1725; C1769; C1876; C9600; C9607; C9803; J1644; Q9957; Q9967; U0003; U0005